=== PATIENT | male | born 1965 | race Caucasian/White ===

== ENCOUNTER 2018-11-18 09:52 | Day surgery (SDC) | payer BC ==
[~2018-11-18] VITALS: Ht 180.3 cm; Wt 88.6 kg
[2018-11-18 10:03] VITALS: Ht 180.3 cm; Wt 88.6 kg
[2018-11-18 10:14] VITALS: BP 109/74; PULSE 51; RESP 20
--- NOTE | 2018-11-18 10:23 | PREAC ---
Date/Time of Note Date/Time of Note DATE: 11/18/18 TIME: 10:22 Anesthesia Eval and Record Evaluation Time Pre-Procedure Interview DATE: 11/18/18 TIME: 10:22 Age 53 Sex male NPO: 8 hrs Preoperative diagnosis screening Planned procedure Colonoscopy Past Medical History Past Medical History: None Surgery & Anesthesia Issues No known issue Meds Anticoagulation: No Beta Xiang within 24 hr: No Reason Beta Xiang not given: Pt. not on B-Xiang Reported Medications [None] No Conflict Check 11/18/18 Meds reviewed: Yes Allergies Coded Allergies: No Known Allergy (Unverified , 11/18/18) Allergies Reviewed: Yes Labs/Studies Labs Reviewed: Reviewed by anesthesiologist test: Negative Studies: ECG Pre-procedure Exam Last vitals Vital Signs Date Temp Pulse Resp B/P (MAP) Pulse Ox O2 O2 Flow FiO2 Time Delivery Rate 11/18/18 98.5 51 20 109/74 97 Room Air 10:14 (86) Airway: Adequate mouth opening, Adequate thyromental dist Mallampati: Mallampati II Teeth: Normal Lung: Normal Heart: Normal ASA Physical Status ASA physical status: 1 Emergency: None Planned Anesthetic General/MAC: MAC Pre-operative Attestations Prior to commencing anesthesia and surgery, the patient was re-evaluated, there was verification of: *The patient's identity *The results of appropriate recent lab work and preoperative vital signs *The above evaluation not changing prior to induction *Anesthetic plan, risk benefits, alternative and complications discussed with patient/family; questions answered; patient/family understands, accepts and wishes to proceed. YULI LANDERS Nov 18, 2018 10:23
[2018-11-18] MEDS ORDERED: FENTAnyl 50 MCG/ML VIAL IV PRN (10:30)
[2018-11-18 10:55] VITALS: BP 106/63; PULSE 68; RESP 20
[2018-11-18 11:10] VITALS: BP 108/66; PULSE 67; RESP 19
[2018-11-18] MEDS ORDERED: PROPOFOL 40 ML ONE (11:10)
[2018-11-18 11:20] VITALS: BP 104/63; PULSE 69; RESP 20
--- NOTE | 2018-11-18 18:41 | PAC ---
Date/Time of Note Date/Time of Note DATE: 11/18/18 TIME: 18:41 Post-Anesthesia Notes Post-Anesthesia Note Last documented vital signs Vital Signs Date Temp Pulse Resp B/P (MAP) Pulse Ox O2 O2 Flow FiO2 Time Delivery Rate 11/18/18 97.9 69 20 104/63 98 Room Air 11:20 (77) Activity: WNL Respiratory function: WNL Cardiovascular function: WNL Mental status: Baseline Pain reasonably controlled: Yes Hydration appropriate: Yes Nausea/Vomiting absent: Yes YULI LANDERS Nov 18, 2018 18:41
== END 2018-11-18 13:08 | disposition home or self-care (01) ==
LOC: GIL 09:52
PROVIDERS: ATTEND Internal Medicine Gastroenterology
DX: Z12.11 Encounter for screening for malignant neoplasm of colon (principal); K64.8 Other hemorrhoids